=== PATIENT | female | born 1990 | race Caucasian/White ===

== ENCOUNTER 2019-10-24 23:39 | Emergency (ER) | payer OTHER ==
[~2019-10-24] VITALS: Ht 152.4 cm; Wt 64.4 kg
[~2019-10-24 23:39] MED LIST: CIPROFLOXACIN500 M1 PO; NORCO 5-325 TA1 EACH PO; PHENERGAN 25 MG25 MG PO; PRENATAL; YASMIN 28 TABL1 EACH PO
[2019-10-25 01:17] VITALS: BP 100/73
== END 2019-10-25 01:19 | disposition home or self-care (01) ==
LOC: ER 23:39
DX: J10.1 Influenza due to other identified influenza virus with other respiratory manifestations (principal); J45.909 Unspecified asthma, uncomplicated; Z98.890 Other specified postprocedural states

== ENCOUNTER 2020-07-24 13:00 | Emergency (ER) | payer OTHER ==
[~2020-07-24] VITALS: Ht 152.4 cm; Wt 63.5 kg
[2020-07-24] MEDS ORDERED: MOBIC15 MG PO (14:59)
[2020-07-24] MEDS ORDERED: CYCLOBENZAPRINE5 MG PO (14:59)
[2020-07-24] MEDS ORDERED: ZOFRAN ODT4 MG PO (15:20)
[2020-07-24 15:31] VITALS: BP 113/78
== END 2020-07-24 15:31 | disposition home or self-care (01) ==
LOC: ER 13:00
DX: S16.1XXA Strain of muscle, fascia and tendon at neck level, initial encounter (principal); S09.90XA Unspecified injury of head, initial encounter; R20.2 Paresthesia of skin; J45.909 Unspecified asthma, uncomplicated; V49.59XA Passenger injured in collision with other motor vehicles in traffic accident, initial encounter; Y93.89 Activity, other specified; Y92.89 Other specified places as the place of occurrence of the external cause; Y99.8 Other external cause status